=== PATIENT | male | born 1940 | race Caucasian/White ===

== ENCOUNTER 2019-05-13 12:55 | Day surgery (SDC) | payer OTHER ==
[~2019-05-13] VITALS: Ht 188 cm; Wt 91.5 kg
[~2019-05-13 12:55] MED LIST: Colace100 MG PO; FISH OIL + D31 EACH PO; LORA1 PO; MECL25 PO; MULTI VITAMIN1 EACH PO; OXYACE5T PO
--- NOTE | 2019-05-13 15:45 | NUR ---
05/13/19 1543 Samantha River @1468 PT WAS DC'D TO [facility]ARE OF [facility] AFTER THEY SPOKE W/DR. العلي. DC INSTRUCTIONS GIVEN AND PT AMBULATED TO CAR W/SBA X1, SOPHIA WELL. NO C/O THROUGHOUT RECOVERY
== END 2019-05-13 15:32 | disposition home or self-care (01) ==
LOC: ORSCSDS 12:55
PROVIDERS: Internal Medicine Gastroenterology
PROC: 0D5P8ZZ Destruction of Rectum, Via Natural or Artificial Opening Endoscopic (ICD-10-PCS; principal; 2019-05-13 14:15)
DX: K92.1 Melena (principal); Z87.891 Personal history of nicotine dependence; Z79.899 Other long term (current) drug therapy
CPT/HCPCS: J2704; J7120

== ENCOUNTER 2022-08-12 21:47 | Emergency (ER) | payer OTHER ==
[~2022-08-12] VITALS: Ht 188 cm; Wt 90.7 kg
[2022-08-12] MEDS ORDERED: AMLODIPINE BESY10 MG PO (22:18)
[2022-08-12 23:09] LABS: BASOPHILS ABSOLUTE AUTO 0.04 K/mm3 (0.00-0.23); BASOPHILS PERCENT AUTO 1 % (0-2); EOSINOPHILS ABSOLUTE AUTO 0.17 K/mm3 (0.00-0.68); EOSINOPHILS PERCENT AUTO 2 % (0-6); Hematocrit 39.1 % (37.0-53.0); IMMATURE GRAN ABSOLUTE AUTO 0.03 K/mm3 (0.00-0.10); IMMATURE GRAN PERCENT AUTO 0 % (0-1); LYMPHOCYTES ABSOLUTE AUTO 2.15 K/mm3 (0.84-5.20); LYMPHOCYTES PERCENT AUTO 25 % (21-46); MONOCYTES ABSOLUTE AUTO 0.95 K/mm3 (0.16-1.47); MONOCYTES PERCENT AUTO 11 % (4-13); Mean Corpuscular HGB 31.8 pg (26.0-34.0); Mean Corpuscular HGB Conc 33.2 g/dL (31.5-36.5); Mean Corpuscular Volume 96 fL (80-100); Mean Platelet Volume 10.5 fL (9.1-12.4); NEUTROPHILS ABSOLUTE AUTO 5.21 K/mm3 (1.96-9.15); NEUTROPHILS PERCENT AUTO 61 % (41-73); Platelet Count 173 K/mm3 (150-400); RDW Coefficient Variation 12.1 % (11.7-14.2); RDW Standard Deviation 42.9 fL (35.1-46.3); Red Blood Cell Count 4.09 M/mm3 (4.30-5.90); White Blood Cell Count 8.55 K/mm3 (4.00-11.30)
[2022-08-12 23:27] LABS: Albumin, Blood 3.2 g/dL (3.4-5.0); Albumin/Globulin Ratio 0.8 (0.8-1.8); Bilirubin, Total 0.3 mg/dL (0.1-1.0); Bun/Creatinine Ratio 26.5 (12.0-20.0); Calcium, Blood 8.9 mg/dL (8.5-10.1); Creatinine, Blood 1.13 mg/dL (0.60-1.20); Potassium, Blood 4.1 mmol/L (3.5-5.5); Total Protein, Blood 7.2 g/dL (6.4-8.2)
== END 2022-08-12 23:47 | disposition home or self-care (01) ==
LOC: ER 21:47
PROVIDERS: Physician Assistant
DX: R07.89 Other chest pain (principal); S29.011A Strain of muscle and tendon of front wall of thorax, initial encounter; X58.XXXA Exposure to other specified factors, initial encounter
CPT/HCPCS: 36415; 80053; 83690; 83880; 84484; 85025; 93005; 93010

== ENCOUNTER 2025-10-14 10:54 | Day surgery (SDC) | payer OTHER ==
[~2025-10-14 10:54] MED LIST changes: +AMLODIPINE BESY10 MG PO
== END 2025-10-14 23:38 | disposition home or self-care (01) ==
LOC: WOUND 10:54
DX: N30.40 Irradiation cystitis without hematuria (principal); R35.0 Frequency of micturition; I10 Essential (primary) hypertension; Z85.46 Personal history of malignant neoplasm of prostate; Z87.891 Personal history of nicotine dependence
CPT/HCPCS: G0463